=== PATIENT | male | born 1995 | race Caucasian/White ===

== ENCOUNTER 2017-02-26 16:11 | Emergency (ER) | payer OTHER ==
[2017-02-26 16:16] VITALS: BP 115/69; PULSE 66; TEMP 98; BMI 20.7
--- NOTE | 2017-02-26 16:58 | PDOC ---
History of Present Illness - General Chief Complaint: Rash Stated Complaint: R/O STD Time Seen by Provider: 02/26/17 16:29 - History of Present Illness Initial Comments: 02/26/17 16:52 CHIEF COMPLAINT: "pimple" on penis HISTORY OF PRESENT ILLNESS: 21 yo M with hx of genital herpes presents to fast track with "pimple on my penis that keeps growing." Patient states he noticed this bump on his penis 2 months ago, and over the last two months it has increased in size. He denies any pain, discharge, or urinary discomfort, but states "I want to get it fixed, because I think I got this in the [place], and I don' t want to give it to my ." No recent travel or sick contacts. PAST MEDICAL HISTORY: Denies past medical history FAMILY HISTORY: Denies SURGICAL HISTORY: Denies ALLERGIES: No known drug allergies REVIEW OF SYSTEMS General/Constitutional: Denies fever or chills. Denies weakness, weight change. HEENT: Denies change in vision. Denies ear pain or discharge. Denies sore throat. Cardiovascular: Denies chest pain or shortness of breath. Respiratory: Denies cough, wheezing, or hemoptysis. Gastrointestinal: Denies nausea, vomiting, diarrhea or constipation. Denies rectal bleeding. Genitourinary: "I have a pimple on my penis." Denies dysuria, frequency, or change in urination. Musculoskeletal: Denies joint or muscle swelling or pain. Denies neck or back pain. Skin: Denies rash or easy bruising. PHYSICAL EXAM General Appearance: Well-appearing, appropriately dressed. No apparent distress ,. HEENT: EOMI, PERRLA. Respiratory/Chest: Lungs CTAB. Cardiovascular: RRR. S1, S2. 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 No ulcerations , discharge. Musculoskeletal/Extremities: Normal inspection. FROM of all extremities, normal capillary refill. Pelvis Stable. No CVA tenderness. No tenderness to extremities, pedal edema, swelling, erythema or deformity. Integumentary: Appropriate color, dry, warm. No cyanosis, erythema, jaundice or rash Neurologic: fruit harvester II-XII intact. Fully oriented, alert. Appropriate mood/affect. Motor strength 5/5. No appreciable EOM palsy, facial droop or sensory deficit. 02/26/17 16:59 Past History - Past Medical History Allergies/Adverse Reactions: Allergies Allergy/AdvReac Type Severity Reaction Status Date / Time No Known Allergies Allergy Verified 02/26/17 16:16 Home Medications: Ambulatory Orders NK [No Known Home Medication] 02/26/17 Disorders: Yes (GENITAL HERPES) - Surgical History Neurologic Surgery: Yes (HEAD) - Psycho/Social/Smoking Cessation Hx Suicidal Ideation: No Smoking History: Never smoked Hx Alcohol Use: Yes (SOCIAL) Drug/Substance Use Hx: No *Physical Exam - Vital Signs Last Vital Signs Temp Pulse Resp BP Pulse Ox 98.0 F 66 20 115/69 99 02/26/17 16:12 02/26/17 16:12 02/26/17 16:12 02/26/17 16:12 02/26/17 16:12 Medical Decision Making - Medical Decision Making 02/26/17 17:04 21 yo M with hx of genital herpes presents to fast track with "pimple on my penis that keeps growing." Patient referred to [facility] for removal of genital warts. Advised patient that the virus that causes the genital warts can still be passed to his . Advised patient of signs and symptoms for return to ER; patient verbalized understanding and agrees to plan. *DC/Admit/Observation/Transfer Diagnosis at time of Disposition: Genital warts - Discharge Dispostion Disposition: HOME Condition at time of disposition: Stable Admit: No - Referrals Referrals: Health, Department of [Other] - Patient Instructions Printed Discharge Instructions: DI for Genital Warts, DI for Genital Herpes Additional Instructions: Please follow up with the department of health as discussed. If you experience any new or worsening symptoms, please return to the ER.
== END 2017-02-26 17:02 | disposition home or self-care (01) ==
LOC: JERFT 16:11
DX: A63.0 Anogenital (venereal) warts (principal)
CPT/HCPCS: 36415; 87255; 87491; 87591; 99281-25